=== PATIENT | male | born 1960 | race Caucasian/White ===

== ENCOUNTER 2017-10-20 09:17 | Emergency (ER) | payer BC, OTHER ==
--- NOTE | 2017-10-20 09:32 | PDOC ---
History of Present Illness - General Chief Complaint: Eye Problem Stated Complaint: REDNESS OF BOTH EYES Time Seen by Provider: 10/20/17 09:22 History Source: Patient Exam Limitations: No Limitations - History of Present Illness Initial Comments: 10/20/17 09:27 57 y/o male with both eyes red and irritated. No itching. Thinks he may have pink eye. Started in one eye and went to the other. No fever or chills. No cough , SOB, or congestion. No sick contacts. Thinks he got caught out in the rain last week. Using OTC drops with no relief. Mild discharge from both eyes but no blurred vision. Denies headache as well. Severity: mild Associated Symptoms: reports: denies symptoms Past History - Past Medical History Allergies/Adverse Reactions: Allergies Allergy/AdvReac Type Severity Reaction Status Date / Time No Known Allergies Allergy Verified 10/20/17 09:19 Home Medications: Ambulatory Orders Amlodipine/Atorvastatin [Caduet 10 mg-20 mg Tablet] 1 each PO DAILY 09/19/12 Ramipril [Altace] 10 mg PO BID 09/19/12 Losartan/Hydrochlorothiazide [Losartan-Hctz 100-25 mg Tablet] 1 each PO DAILY Aspirin Coated [Ecotrin -] 81 mg PO DAILY 10/20/17 Atorvastatin Ca [Lipitor] 60 mg PO DAILY 10/20/17 Clopidogrel Bisulfate [Plavix] 75 mg PO DAILY 10/20/17 Metoprolol Succinate [Toprol Xl -] 50 mg PO HS 10/20/17 Ranolazine [Ranexa] 500 mg PO BID 10/20/17 Tobramycin/Dexamethasone [Tobradex Eye Drops] 5 ml OP QID #5 drops.susp HTN: Yes Hypercholesterolemia: Yes - Immunization History Td Vaccination: Yes Immunization Up to Date: No - Suicide/Smoking/Psychosocial Hx Smoking Status: Yes Smoking History: Never smoked Number of Cigarettes Smoked Daily: 0 Cigars Per Day: 1 Hx Alcohol Use: No Substance Use Type: None Review of Systems - Review of Systems Able to Perform ROS?: Yes Is the patient limited Indonesian proficient: No Constitutional: No: Chills, Fever HEENTM: No: Eye Pain, Blurred Vision Respiratory: No: Cough, Shortness of Breath Cardiac (ROS): No: Chest Pain ABD/GI: No: Nausea, Vomiting Musculoskeletal: No: Back Pain All Other Systems: Reviewed and Negative *Physical Exam - Physical Exam General Appearance: Yes: Nourished, Appropriately Dressed. No: Apparent Distress HEENT: positive: EOMI, BATOOL, Normal Voice, Symmetrical, Pharynx Normal. negative: Normal ENT Inspection (both eyes with injected conjunctiva, no drainage or matting of eyelashes noted), Scleral Icterus (R), Scleral Icterus (L ) Neck: positive: Trachea midline, Supple. negative: Tender, Rigid, Carotid bruit Respiratory/Chest: positive: Lungs Clear, Normal Breath Sounds. negative: Chest Tender, Respiratory Distress Cardiovascular: positive: Regular Rhythm, Regular Rate, S1, S2. negative: Edema , JVD, Murmur Vascular Pulses: Femoral (R): 4+, Femoral (L): 4+, Carotid (R): 4+, Carotid (L) : 4+, Dorsalis-Pedis (R): 4+, Doralis-Pedis (L): 4+ Gastrointestinal/Abdominal: positive: Normal Bowel Sounds, Flat, Soft Lymphatic: negative: Adenopathy, Tenderness, Other Musculoskeletal: positive: Normal Inspection. negative: CVA Tenderness Extremity: positive: Normal Capillary Refill, Normal Inspection, Normal Range of Motion Integumentary: positive: Normal Color, Dry, Warm. negative: Erythema Neurologic: positive: code enforcement officer II-XII NML intact, Fully Oriented, Alert, Normal Mood/ Affect, Normal Response, Motor Strength 5/5 ED Treatment Course - ADDITIONAL ORDERS Additional order review: 10/20/17 09:30 57 y/o male presents with b/l conjunctivitis Will treat with Tobradex If worsen return to ER *DC/Admit/Observation/Transfer Diagnosis at time of Disposition: Conjunctivitis Qualifiers: Conjunctivitis type: acute Acute conjunctivitis type: unspecified Laterality: bilateral Qualified Code(s): H10.33 - Unspecified acute conjunctivitis, bilateral - Discharge Dispostion Disposition: HOME Condition at time of disposition: Good Admit: No - Referrals Referrals: Perla Jacinto MD [Primary Care Provider] - - Patient Instructions Printed Discharge Instructions: DI for Conjunctivitis Additional Instructions: Keep clean Tobradex eye drops 1 drop 4x/day to both eyes for 5-7 days If worsen return to ER - Post Discharge Activity
[2017-10-20 09:54] VITALS: BP 121/76; PULSE 65; TEMP 98.2; BMI 33.2
== END 2017-10-20 09:36 | disposition home or self-care (01) ==
LOC: FER 09:17
DX: H10.33 Unspecified acute conjunctivitis, bilateral (principal); I10 Essential (primary) hypertension; E78.00 Pure hypercholesterolemia, unspecified
CPT/HCPCS: 99282-25

== ENCOUNTER 2020-09-15 16:00 | Emergency (ER) | payer OTHER ==
[2020-09-15 16:04] VITALS: BP 152/91; PULSE 54; TEMP 98.4; BMI 31.5
== END 2020-09-15 16:56 | disposition home or self-care (01) ==
LOC: FER 16:00
DX: M70.21 Olecranon bursitis, right elbow (principal)
CPT/HCPCS: 99283-25

== ENCOUNTER 2021-08-07 07:42 | Day surgery (SDC) | payer OTHER ==
[2021-08-02 15:57] VITALS: BMI 32.3
[2021-08-07] MEDS ORDERED: LIDOCAINE HCL/PF 2% SDV 5ML VIAL ONE (09:00)
[2021-08-07] MEDS ORDERED: PROPOFOL 20 ML ONE (09:00)
[2021-08-07 09:36] VITALS: TEMP 98.1
[2021-08-07 09:51] VITALS: BP 118/78; PULSE 53
== END 2021-08-07 10:10 | disposition home or self-care (01) ==
LOC: FASU-ENDO 07:42
PROVIDERS: ATTEND Internal Medicine Gastroenterology
PROC: 0DJD8ZZ Inspection of Lower Intestinal Tract, Via Natural or Artificial Opening Endoscopic (ICD-10-PCS; principal; 2021-08-07 09:13)
DX: Z12.11 Encounter for screening for malignant neoplasm of colon (principal); Z86.010 Personal history of colon polyps

== ENCOUNTER 2023-02-04 11:14 | Emergency (ER) | payer OTHER ==
[2023-02-04 11:44] VITALS: BP 168/95; PULSE 51; RESP 16; TEMP 98; BMI 33.6
[2023-02-04] MEDS ORDERED: SODIUM CHLORIDE 0.9% 500 ML INFUS.BAG IV ONE (11:45)
[2023-02-04 12:17] LABS: HEMATOCRIT 40.9 % (35.4-49); HEMOGLOBIN 14.1 G/dL (11.7-16.9); MCH 29.4 pg (25.7-33.7); MCHC 34.4 g/dl (32.0-35.9); MEAN CELL VOLUME 85.4 fl (80-96); MEAN PLT VOLUME 6.7 fl (7.5-11.1); PLATELET COUNT 212.6 10^3/uL (134-434); RBC 4.79 10^6/uL (4.00-5.60); RDW 14.7 % (11.9-15.9); WHITE BLOOD COUNT 12.8 10^3/uL (4.0-10.8)
[2023-02-04 12:35] LABS: ALBUMIN 4.5 g/dl (3.4-5.0); BLOOD UREA NITROGEN 25.7 mg/dl (7-18); CALCIUM 9.7 mg/dl (8.5-10.1); SGOT/AST 55.7 U/L (15-37); SGPT/ALT 49.9 U/L (7-52)
[2023-02-04 12:40] LABS: POTASSIUM 4.2 mmol/L (3.5-5.1)
[2023-02-04 12:47] LABS: PLATELET ESTIMATE ADEQUATE
== END 2023-02-04 13:12 | disposition home or self-care (01) ==
LOC: FER 11:14
DX: R55 Syncope and collapse (principal); R42 Dizziness and giddiness; R11.2 Nausea with vomiting, unspecified
CPT/HCPCS: 36415; 80053; 84484; 85027; 93005; 99284-25